=== PATIENT | female | born 2000 | race Caucasian/White ===

== ENCOUNTER 2020-03-19 11:56 | Emergency (ER) | payer SELFPAY ==
[~2020-03-19] VITALS: Ht 160 cm; Wt 99.8 kg
[2020-03-19 12:05] VITALS: BP 129/66
--- NOTE | 2020-03-19 12:18 | NUR ---
AMBULATED TO BED 12
--- NOTE | 2020-03-19 12:53 | NUR ---
PT BIB SELF C/O VAGINAL PAIN & SWELLING, VAGINAL BLEEDING X YESTERDAY. PT DENIES N/V/D; SKIN IS INTACT, PINK/WARM/DRY; AAOX4, PERRL, WITH EVEN AND STEADY GAIT; LUNGS CLEAR BL, BREATHING UNLABORED; HR EVEN AND REGULAR, BS ACTIVE X4, NO TENDERNESS TO PALPATION. PT DENIES ANY FEVER, CP, SOB, OR COUGH AT THIS TIME; PT STATES 5/10 PAIN AT THIS TIME; VSS; PATIENT POSITIONED FOR COMFORT; HOB ELEVATED; BEDRAILS UP X2; BED DOWN.
--- NOTE | 2020-03-19 12:55 | NUR ---
ER AT BEDSIDE FOR EVAL.
--- NOTE | 2020-03-19 12:55 | NUR ---
PT AMB TO [facility] W/O ASST. [facility] SENT TO LAB
--- NOTE | 2020-03-19 13:08 | NUR ---
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
[2020-03-19 13:19] LABS: APPEARANCE,URINE HAZY (CLEAR); BILIRUBIN,URINE 1+ (NEGATIVE); BLOOD, URINE TRACE-I (NEGATIVE); COLOR,URINE YELLOW (YELLOW); LEUKOCYTE ESTERASE ,URINE TRACE (NEGATIVE); NITRITE, URINE NEGATIVE (NEGATIVE); UGLUCOSE NEGATIVE (NEGATIVE)
[2020-03-19 13:41] LABS: WBC,URINE 16-25 (MOD) /HPF (0-5)
[2020-03-19 14:00] VITALS: BP 112/67
--- NOTE | 2020-03-19 14:00 | NUR ---
Patient discharged with v/s stable. Written and verbal after care instructions given and explained. Patient alert, oriented and verbalized understanding of instructions. Ambulatory with steady gait. All questions addressed prior to discharge. ID band removed. Patient advised to follow up with PMD. Rx of bactrim ds given. Patient educated on indication of medication including possible reaction and side effects. Opportunity to ask questions provided and answered.
== END 2020-03-19 14:00 | disposition home or self-care (01) ==
LOC: MED 11:56
DX: N76.0 Acute vaginitis (principal); Z91.013 Allergy to seafood; Z91.02 Food additives allergy status
CPT/HCPCS: 81001; 81025; 87086; 87210; 99283